=== PATIENT | male | born 1965 | race African-American/Black ===

== ENCOUNTER 2021-07-26 16:33 | Emergency (ER) | payer OTHER ==
[~2021-07-26] VITALS: Ht 188 cm; Wt 97.5 kg
--- NOTE | 2021-07-26 16:43 | NUR ---
Nikole allison in [facility] - 07/26/21 at 1652 by LAILA FAXED CLINICALS TO [facility].
--- NOTE | 2021-07-26 16:46 | NUR ---
TO ER BED 10, BIBFAMILY C/O ON AND OFF LEFT SHOULDER PAIN/SPASM X1WEEK, UNABLE TO EXTEND ARM, HEATING PAD DON'T WORK, AAOX3, BREATHING EVEN AND NON LABORED, AWAITING MD GARY
[2021-07-26 16:49] VITALS: BP 119/75
[2021-07-26] MEDS ORDERED: HYDROCODONE/APAP 5/325MG TABLET ONE (17:48)
[2021-07-26] MEDS ORDERED: KETOROLAC TROMETHAMINE INJ 30 MG/ML VIAL ONE (17:48)
[2021-07-26] MEDS ORDERED: KETOROLAC TROMETHAMINE INJ 60 MG/2 ML VIAL IM ONE (18:00)
[2021-07-26] MEDS ORDERED: HYDROCODONE/APAP 5/325MG TABLET PO ONE (18:00)
[2021-07-26] MEDS ORDERED: HYDR-4209 PO (18:36)
[2021-07-26] MEDS ORDERED: NAPR-1164 PO (18:36)
--- NOTE | 2021-07-26 18:51 | NUR ---
Patient discharged to home in stable condition. Written and verbal after care instructions given. Patient verbalizes understanding of instruction.
== END 2021-07-26 18:52 | disposition home or self-care (01) ==
LOC: ER 16:37
DX: M25.512 Pain in left shoulder (principal)
CPT/HCPCS: 73030; 96372; 99283; J1885